=== PATIENT | male | born 1985 | race Caucasian/White ===

== ENCOUNTER 2018-03-23 01:58 | Emergency (ER) | payer MEDICAID ==
[2018-03-23 02:03] VITALS: BP 123/59
[2018-03-23] MEDS ORDERED: Lactated Ringers 1,000 ML IV ONE (02:07)
[2018-03-23] MEDS ORDERED: Prochlorperazine 10 MG/2 ML SDV IVPUSH ONE (02:08)
[2018-03-23] MEDS ORDERED: diphenhydrAMINE 50 MG/ML SDV IVPUSH ONE ×2 (02:08→03:08)
--- NOTE | 2018-03-23 02:19 | EDM.PDOC ---
ED HPI GENERAL MEDICAL PROBLEM - General Chief Complaint: Headache Stated Complaint: MEDICAL [facility]IA [facility] Time Seen by Provider: 03/23/18 02:05 Source of Information: Reports: Patient, EMS, Old Records History Limitations: Reports: No Limitations - History of Present Illness INITIAL COMMENTS - FREE TEXT/NARRATIVE: 32 yo male presents with abrupt onset of a MARLEY associated with nausea and inability to control his eyes. He has no hx of the same. No fever. Has a mildly stiff neck and epigastric pain. Has been on prednisone and methocarbimol for a few days for back pain. Onset: Today, Sudden Onset Date: 03/23/18 Onset Time: 00:50 Duration: Minutes: Location: Reports: Head Quality: Reports: Ache Severity: Moderate Improves with: Reports: None Worsens with: Reports: None Context: Reports: Other (? new medication) Associated Symptoms: Reports: Headaches, Nausea/Vomiting (no vomiting). 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 (see below) (none) headache Pain Score (Numeric/FACES): 10 - Related Data Allergies Allergy/AdvReac Type Severity Reaction Status Date / Time No Known Allergies Allergy Verified 03/23/18 02:24 Home Meds: Home Meds Methocarbamol [Robaxin] 500 mg PO Q6H PRN 03/23/18 [History] methylPREDNISolone [Methylprednisolone] 4 mg PO 03/23/18 [History] Past Medical History HEENT History: Reports: Other (See Below) Other HEENT History: hx strep throat Respiratory History: Reports: Bronchitis, Recurrent Musculoskeletal History: Reports: Back Pain, Chronic, Other (See Below) Other Musculoskeletal History: scoliosis Psychiatric History: Reports: ADHD - Past Surgical History GI Surgical History: Reports: Cholecystectomy Neurological Surgical History: Reports: Scoliosis Social & Family History - Family History Endocrine/Metabolic: Reports: Diabetes, type II ED ROS GENERAL - Review of Systems Review Of Systems: See Below Constitutional: Reports: No Symptoms HEENT: Reports: Other (Can't control eyes) Respiratory: Reports: No Symptoms Cardiovascular: Reports: No Symptoms GI/Abdominal: Reports: Abdominal Pain (epigastric), Nausea. Denies: Black Stool , Bloody Stool, Constipation, Diarrhea, Decreased Appetite, Distension, Hematemesis, Hematochezia, Melena, Vomiting : Reports: No Symptoms Musculoskeletal: Reports: No Symptoms Skin: Reports: No Symptoms Neurological: Reports: Dizziness, Headache Psychiatric: Reports: No Symptoms - Physical Exam Exam: See Below Exam Limited By: No Limitations General Appearance: Alert, WD/WN, No Apparent Distress Eye Exam: Bilateral Eye: Nystagmus (Rotatory), PERRL Ears: Normal External Exam, Normal Canal, Hearing Grossly Normal Nose: Normal Inspection, Normal Mucosa, No Blood Throat/Mouth: Normal Inspection, Normal Lips, Normal Oropharynx, Normal Voice, No Airway Compromise Head Exam: Atraumatic, Normocephalic Neck: Normal Inspection, Supple Respiratory/Chest: No Respiratory Distress, Lungs Clear, Normal Breath Sounds, No Accessory Muscle Use Cardiovascular: Regular Rate, Rhythm GI/Abdominal: Normal Bowel Sounds, Soft, Non-Tender, No Distention Neuro Exam (Abbreviated): Alert, Oriented, CN II-XII Intact, Normal Cognition, No Motor/Sensory Deficits Back Exam: Normal Inspection Extremities: Normal Inspection, Normal Range of Motion, Non-Tender Psychiatric: Normal Affect, Normal Mood Skin Exam: Warm, Dry, Intact, Normal Color, No Rash Course - Vital Signs Text/Narrative:: Feeling much better after tx in the ER. Last Recorded V/S: Last Vital Signs Temp 35.6 C 03/23/18 02:28 Pulse 55 L 03/23/18 02:28 Resp 16 03/23/18 02:28 BP 123/59 L 03/23/18 02:28 Pulse Ox 98 03/23/18 02:28 - Orders/Labs/Meds Orders: Active Orders 24 hr Category Date Time Status Head wo Cont [CT] Stat Exams 03/23/18 02:09 Taken Meds: Medications Discontinued Medications Generic Name Dose Route Start Last Admin Trade Name Jeremie PRN Reason Stop Dose Admin Diphenhydramine HCl 25 mg 03/23/18 02:08 03/23/18 02:36 Benadryl IVPUSH 03/23/18 02:09 25 mg ONETIME ONE Administration Diphenhydramine HCl 25 mg 03/23/18 03:08 03/23/18 03:44 Benadryl IVPUSH 03/23/18 03:09 25 mg ONETIME ONE Administration Lactated Ringer's 1,000 mls @ 1,000 mls/hr 03/23/18 02:07 03/23/18 03:14 Ringers, Lactated IV 03/23/18 03:06 1,000 mls/hr BOLUS ONE Administration Prochlorperazine Edisylate 10 mg 03/23/18 02:08 Compazine IVPUSH 03/23/18 02:09 ONETIME ONE - Radiology Interpretation Free Text/Narrative:: Negative head CT scan CT Results Date: 03/23/18 CT Results Time: 02:45 Departure - Departure Time of Disposition: 04:15 Disposition: Home, Self-Care 01 Condition: Good Clinical Impression: Medication side effects Headache Qualifiers: Headache type: other drug induced headache Intractability: not intractable Qualified Code(s): G44.40 - Drug-induced headache, not elsewhere classified, not intractable - Discharge Information Referrals: PCP,None [Primary Care Provider] - Forms: ED Department Discharge - My Orders Last 24 Hours: My Active Orders 03/23/18 02:09 Head wo Cont [CT] Stat - Assessment/Plan Last 24 Hours: My Active Orders 03/23/18 02:09 Head wo Cont [CT] Stat
== END 2018-03-23 04:45 | disposition home or self-care (01) ==
LOC: JP.ED 01:58
DX: G44.40 Drug-induced headache, not elsewhere classified, not intractable (principal); T38.0X5A Adverse effect of glucocorticoids and synthetic analogues, initial encounter; T48.1X5A Adverse effect of skeletal muscle relaxants [neuromuscular blocking agents], initial encounter; E11.9 Type 2 diabetes mellitus without complications; Z79.899 Other long term (current) drug therapy
CPT/HCPCS: 70450; 96361; 96374; 96376; 99285; J1200; J7120

== ENCOUNTER 2019-04-25 16:48 | Emergency (ER) | payer MEDICAID ==
[2019-04-25 17:54] VITALS: BP 150/80; PULSE 74
--- NOTE | 2019-04-25 18:49 | CRLCR ---
HISTORY: Pain. TECHNIQUE: Left foot 3 views. COMPARISON: None. FINDINGS: No fracture or dislocation. Joint spaces are maintained. No erosions. Plantar calcaneal and Achilles insertion enthesophytes. IMPRESSION: No acute bone abnormality. Dictated by Domenico Reyes MD @ Apr 25 2019 6:47PM Signed by Dr. Domenico Reyes @ Apr 25 2019 6:48PM
--- NOTE | 2019-04-25 18:58 | EDM.PDOC ---
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 he has had difficulty walking difficulty bearing weight mild amount of swelling can still ambulate, does have a history of this similar injury in the past - Related Data Allergies Allergy/AdvReac Type Severity Reaction Status Date / Time No Known Allergies Allergy Verified 03/23/18 02:24 Home Meds: Home Meds Methocarbamol [Robaxin] 500 mg PO Q6H PRN 03/23/18 [History] methylPREDNISolone [Methylprednisolone] 4 mg PO 03/23/18 [History] Past Medical History HEENT History: Reports: Other (See Below) Other HEENT History: hx strep throat Respiratory History: Reports: Bronchitis, Recurrent Musculoskeletal History: Reports: Back Pain, Chronic, Other (See Below) Other Musculoskeletal History: scoliosis Psychiatric History: Reports: ADHD - Past Surgical History GI Surgical History: Reports: Cholecystectomy Neurological Surgical History: Reports: Scoliosis Social & Family History - Family History Endocrine/Metabolic: Reports: Diabetes, type II - Tobacco Use Smoking Status *Q: Never Smoker - Caffeine Use Caffeine Use: Reports: Soda Review of Systems - Review of Systems Review Of Systems: See Below Musculoskeletal: Reports: Foot Pain Skin: Reports: No Symptoms Neurological: Reports: No Symptoms ED EXAM, GENERAL - Physical Exam Exam: See Below Free Text/Narrative:: Examination of the foot I do appreciate slight edema over the dorsal aspect of the foot there is no erythema pedal pulses +2 full range of motion of all digits is no tenderness ankle no tenderness at the knee Exam Limited By: No Limitations General Appearance: Alert, WD/WN, No Apparent Distress Course - Vital Signs Last Recorded V/S: Last Vital Signs Temp 97.8 F 04/25/19 18:04 Pulse 74 04/25/19 18:04 Resp 16 04/25/19 18:04 BP 150/80 H 04/25/19 18:04 Pulse Ox 95 04/25/19 18:04 - Orders/Labs/Meds Orders: Active Orders 24 hr Category Date Time Status DME for Discharge [COMM] Per Unit Routine Oth 04/25/19 18:54 Ordered Departure - Departure Time of Disposition: 18:57 Disposition: Home, Self-Care 01 Condition: Fair Clinical Impression: Left foot sprain Sprain of left foot Qualifiers: Encounter type: initial encounter Qualified Code(s): S93.602A - Unspecified sprain of left foot, initial encounter - Discharge Information Referrals: PCP,None [Primary Care Provider] - Additional Instructions: Use Tylenol or Motrin as needed for pain control, continue to use the air gel splint and crutches for comfort, Please followup with your primary care provider in 3-5 days if not better, please call return to the emergency department with worsening of symptoms. - My Orders Last 24 Hours: My Active Orders 04/25/19 18:54 DME for Discharge [COMM] Per Unit Routine - Assessment/Plan Last 24 Hours: My Active Orders 04/25/19 18:54 DME for Discharge [COMM] Per Unit Routine Plan: Assessment Acuity = acute Site and laterality = left foot sprain Etiology = secondary to trauma Manifestations = none Location of injury = Home Lab values = x-ray describes no fracture or dislocation per radiology Plan Provided an air gel splint and crutches will use nonsteroidal anti- inflammatories for pain control follow-up primary care 3-5 days if no improvement This note was dictated using [employer] voice recognition software please call with any questions on syntax or grammar.
== END 2019-04-25 19:18 | disposition home or self-care (01) ==
LOC: JP.ED 16:48
DX: S93.602A Unspecified sprain of left foot, initial encounter (principal); Z90.49 Acquired absence of other specified parts of digestive tract; X58.XXXA Exposure to other specified factors, initial encounter; Y93.39 Activity, other involving climbing, rappelling and jumping off
CPT/HCPCS: 73630-LT; 99283-25

== ENCOUNTER 2021-03-04 19:51 | Emergency (ER) | payer MEDICAID ==
[2021-03-04 20:07] VITALS: BP 135/74; PULSE 76
[2021-03-04] MEDS ORDERED: Ketorolac 60 MG/2 ML SDV IM ONE (20:17)
--- NOTE | 2021-03-04 20:21 | EDM.PDOC ---
ED HPI GENERAL MEDICAL PROBLEM - General Chief Complaint: General Stated Complaint: SLIGHT CHEST PAIN Time Seen by Provider: 03/04/21 20:09 Source of Information: Reports: Patient History Limitations: Reports: No Limitations - History of Present Illness INITIAL COMMENTS - FREE TEXT/NARRATIVE: Say is a 35-year-old male presenting to the ED for evaluation of central anterior chest pain that started this morning when he awoke. Patient was at his job as a specialist physician at [employer] and the pain was fairly persistent through the day. The pain worsens with change in position and with breathing. The pain runs along the sternal chondral borders bilaterally. Patient denies any fever, chills, nausea, vomiting, shortness of breath or cough. Patient did get a Mantoux test on Sunday with some inflammation of his forearm. The test was negative. He denies any strenuous activity, however, he did work on a [employer] truck yesterday. There was no heavy lifting with that. Denies any other trauma. Patient is a non-smoker. He only takes Flexeril as needed for back spasms. He has no other significant past medical history. Middle Chest Pain Score (Numeric/FACES): 5 - Related Data Allergies Allergy/AdvReac Type Severity Reaction Status Date / Time methocarbamol [From Robaxin] Allergy Dizziness Verified 03/04/21 21:43 Home Meds: Home Meds Cyclobenzaprine [Flexeril] 1 tab PO TID PRN 03/04/21 [History] Past Medical History HEENT History: Reports: Other (See Below) Other HEENT History: hx strep throat Respiratory History: Reports: Bronchitis, Recurrent Musculoskeletal History: Reports: Back Pain, Chronic, Other (See Below) Other Musculoskeletal History: scoliosis Neurological History: Reports: None Psychiatric History: Reports: ADHD - Past Surgical History GI Surgical History: Reports: Cholecystectomy Neurological Surgical History: Reports: Scoliosis Social & Family History - Family History Endocrine/Metabolic: Reports: Diabetes, type II - Tobacco Use Tobacco Use Status *Q: Never Tobacco User - Caffeine Use Caffeine Use: Reports: Soda - Recreational Drug Use Recreational Drug Use: No ED ROS GENERAL - Review of Systems Review Of Systems: See Below Constitutional: Reports: No Symptoms HEENT: Reports: No Symptoms Respiratory: Reports: No Symptoms Cardiovascular: Reports: Chest Pain (Central chest pain worsens with position change in breathing.) Endocrine: Reports: No Symptoms GI/Abdominal: Reports: No Symptoms : Reports: No Symptoms Musculoskeletal: Reports: No Symptoms Skin: Reports: No Symptoms Neurological: Reports: No Symptoms Psychiatric: Reports: No Symptoms Hematologic/Lymphatic: Reports: No Symptoms Immunologic: Reports: No Symptoms ED EXAM, GENERAL - Physical Exam Exam: See Below Exam Limited By: No Limitations General Appearance: Alert, No Apparent Distress, Obese Eye Exam: Bilateral Eye: PERRL Throat/Mouth: Normal Inspection, Normal Oropharynx, Normal Voice, No Airway Compromise Head: Atraumatic, Normocephalic Neck: Normal Inspection, Supple, Non-Tender, Full Range of Motion Respiratory/Chest: No Respiratory Distress, Lungs Clear, Normal Breath Sounds, No Accessory Muscle Use, Other (Pain with palpation over the sternal costal borders bilaterally. This reproduces his symptoms.) Cardiovascular: Normal Peripheral Pulses, Regular Rate, Rhythm, No Murmur Peripheral Pulses: 2+: Radial (L), Radial (R), Posterior Tibial (L), Posterior Tibial (R) GI/Abdominal: Normal Bowel Sounds, Soft, Non-Tender Back Exam: Normal Inspection, Full Range of Motion Extremities: Normal Inspection, Normal Range of Motion, No Pedal Edema Neurological: Alert, Oriented, Normal Cognition, No Motor/Sensory Deficits Psychiatric: Normal Affect, Normal Mood Skin Exam: Warm, Dry, Intact, Normal Color, No Rash Lymphatic: No Adenopathy #1 Interpretation EKG Date: 03/04/21 Time: 20:18 Rhythm: NSR Rate (Beats/Min): 74 [place]: Normal P-Wave: Present QRS: Normal ST-T: Other (Early repolarization abnormality with ST elevation in leads I, 2, V4, V5. These are not consistent with STEMI.) QT: Normal Comparison: NA - No Prior EKG Course - Vital Signs Last Recorded V/S: Last Vital Signs Temp 36.7 C 03/04/21 20:07 Pulse 76 03/04/21 20:07 Resp 16 03/04/21 20:07 BP 135/74 03/04/21 20:07 Pulse Ox 97 03/04/21 20:07 - Orders/Labs/Meds Orders: Active Orders 24 hr Category Date Time Status EKG Documentation Completion [RC] ASDIRECTED Care 03/04/21 20:10 Active Chest 2V [CR] Stat Exams 03/04/21 20:10 Taken EKG 12 Lead [EK] Routine Ther 03/04/21 20:10 Ordered Labs: Laboratory Tests 03/04/21 03/04/21 03/04/21 Range/Units 20:19 20:19 21:46 WBC 10.6 (4.5-11.0) K/uL RBC 5.02 (4.30-5.90) M/uL Hgb 13.0 (12.0-15.0) g/dL Hct 40.8 (40.0-54.0) % MCV 81 (80-98) fL MCH 26 L (27-31) pg MCHC 32 (32-36) % Plt Count 438 H (150-400) K/uL Neut % (Auto) 57.9 (36-66) % Lymph % (Auto) 27.8 (24-44) % [place] % (Auto) 10.6 H (2-6) % Eos % (Auto) 2.9 (2-4) % Baso % (Auto) 0.8 (0-1) % D-Dimer, Quantitative 350.29 (0.0-500.0) ng/mL Sodium 141 (140-148) mmol/L Potassium 4.3 (3.6-5.2) mmol/L Chloride 103 (100-108) mmol/L Carbon Dioxide 28 (21-32) mmol/L Anion Gap 9.6 (5.0-14.0) mmol/L BUN 21 H D (7-18) mg/dL Creatinine 0.9 (0.8-1.3) mg/dL Est Cr Clr Drug Dosing 99.65 mL/min Estimated GFR (MDRD) > 60 (>60) Glucose 98 (74-106) mg/dL Calcium 9.3 (8.5-10.1) mg/dL Total Bilirubin 0.2 D (0.2-1.0) mg/dL AST 40 H (15-37) U/L ALT 85 H (12-78) U/L Alkaline Phosphatase 98 (46-116) U/L Troponin I < 0.017 (0.000-0.056) ng/mL C-Reactive Protein 1.29 H (0.0-0.3) mg/dL Total Protein 7.7 (6.4-8.2) g/dL Albumin 3.8 (3.4-5.0) g/dL Globulin 3.9 H (2.3-3.5) g/dL Albumin/Globulin Ratio 1.0 L (1.2-2.2) Meds: Medications Discontinued Medications Generic Name Dose Route Start Last Admin Trade Name Jeremie PRN Reason Stop Dose Admin Ketorolac Tromethamine 60 mg 03/04/21 20:17 03/04/21 20:33 Ketorolac 60 Mg/2 Ml Sdv IM 03/04/21 20:18 60 mg ONETIME ONE Administration - Radiology Interpretation Free Text/Narrative:: Chest 2 view x-rays were reviewed showing no acute abnormalities. - Re-Assessments/Exams Free Text/Narrative Re-Assessment/Exam: 03/04/21 21:32 patient's EKG shows early repolarization abnormality, however, no evidence for acute injury or infarct. His troponin is also negative. The patient's labs showing an elevated C-reactive protein of 1.29 and a normal CBC and comprehensive metabolic profile the exception of mild elevation of his AST and ALT likely secondary to some alcohol intake. He has had some improvement in his chest pain after receiving the Toradol. X-rays were reviewed showing no acute abnormalities. At this time I believe the patient is suitable for discharge with acute costochondritis. We will continue to treat him with Toradol 10 mg 4 times daily which was sent to [facility]. Departure - Departure Time of Disposition: 22:32 Disposition: Home, Self-Care 01 Clinical Impression: Acute costochondritis - Discharge Information Instructions: Costochondritis Referrals: PCP,None [Primary Care Provider] - Forms: ED Department Discharge Care Plan Goals: Your work-up shows that you have inflammation between the ribs and the sternum called acute costochondritis. This is like a flare of arthritis. We are going to put you on the oral form of what I gave you in the shot to help control the pain. This will likely take 3 to 4 days to completely go away but should improve each day. This is nothing dangerous or serious but it is bothersome. There is no limitation to your activity which is as tolerated. Return to the ED should you develop any significant shortness of breath. Sepsis Event Note (ED) - Evaluation Sepsis Screening Result: No Definite Risk - Focused Exam Vital Signs: Vital Signs Temp Pulse Resp BP Pulse Ox 03/04/21 20:07 36.7 C 76 16 135/74 97 03/04/21 20:06 36.7 C 76 16 135/74 97 - Problem List & Annotations (1) Acute costochondritis SNOMED Code(s): 22994158, 22445508 Code(s): M94.0 - CHONDROCOSTAL JUNCTION SYNDROME [TIETZE] Status: Acute Priority: High Current Visit: Yes - Problem List Review Problem List Initiated/Reviewed/Updated: Yes - My Orders Last 24 Hours: My Active Orders 03/04/21 20:10 EKG Documentation Completion [RC] ASDIRECTED Chest 2V [CR] Stat EKG 12 Lead [EK] Routine - Assessment/Plan Last 24 Hours: My Active Orders 03/04/21 20:10 EKG Documentation Completion [RC] ASDIRECTED Chest 2V [CR] Stat EKG 12 Lead [EK] Routine
--- NOTE | 2021-03-08 09:09 | CR ---
CHEST: 2 view CLINICAL HISTORY:Retrosternal pain COMPARISON:2016 FINDINGS: The heart size, pulmonary vascularity and hilar structures are normal. No infiltrate effusion or pneumothorax is seen. IMPRESSION: No acute cardiopulmonary process. Specifically the sternum appears intact on the lateral view with no evidence for retrosternal mass
== END 2021-03-04 22:38 | disposition home or self-care (01) ==
LOC: JP.ED 19:51
DX: M94.0 Chondrocostal junction syndrome [Tietze] (principal); Z88.1 Allergy status to other antibiotic agents
CPT/HCPCS: 36415; 71046; 80053; 84484; 85025; 85379; 86140; 93005; 96372; 99284; J1885

== ENCOUNTER 2021-12-29 09:20 | Emergency (ER) | payer MEDICAID ==
[2021-12-29 09:28] VITALS: PULSE 107
[2021-12-29] MEDS ORDERED: Ondansetron 4 MG/2 ML SDV IVPUSH ONE (09:44)
[2021-12-29] MEDS ORDERED: Sodium Chloride 0.9% 1,000 ML IV SCH (09:45)
[2021-12-29 10:56] VITALS: BP 116/62
== END 2021-12-29 11:06 | disposition home or self-care (01) ==
LOC: JP.ED 09:20
DX: K52.9 Noninfective gastroenteritis and colitis, unspecified (principal); R55 Syncope and collapse; Z88.1 Allergy status to other antibiotic agents
CPT/HCPCS: 36415; 80053; 83690; 85025; 96374; 99284; 99284-25; J2405; J7030

== ENCOUNTER 2022-05-21 10:52 | Emergency (ER) | payer MEDICAID ==
[2022-05-21 11:05] VITALS: BP 134/79; PULSE 92
== END 2022-05-21 12:19 | disposition home or self-care (01) ==
LOC: JP.ED 10:52
DX: L03.032 Cellulitis of left toe (principal); Z88.8 Allergy status to other drugs, medicaments and biological substances; Z90.49 Acquired absence of other specified parts of digestive tract; W20.8XXA Other cause of strike by thrown, projected or falling object, initial encounter
CPT/HCPCS: 73630-26-LT; 73630-LT; 99281; 99283

== ENCOUNTER 2022-11-24 17:50 | Emergency (ER) | payer MEDICAID ==
[2022-11-24 18:04] VITALS: BP 155/86; PULSE 96
[2022-11-24 18:51] LABS: CORONAVIRUS COVID-19 NAA NEGATIVE (NEGATIVE)
== END 2022-11-24 18:50 | disposition home or self-care (01) ==
LOC: JP.ED 17:50
DX: J02.0 Streptococcal pharyngitis (principal); Z88.8 Allergy status to other drugs, medicaments and biological substances; Z20.822 Contact with and (suspected) exposure to COVID-19
CPT/HCPCS: 0241U; 87880; 99283

== ENCOUNTER 2023-01-23 18:03 | Emergency (ER) | payer MEDICAID ==
[2023-01-23] MEDS ORDERED: Sodium Chloride 0.9% 10 ML Syringe FLUSH PRN (19:08)
[2023-01-23] MEDS ORDERED: Sodium Chloride 0.9% 1,000 ML IV STA (19:08)
[2023-01-23] MEDS ORDERED: fentaNYL 100 MCG/2 ML SDV IVPUSH ONE (19:09)
[2023-01-23] MEDS ORDERED: Ondansetron 4 MG/2 ML SDV IVPUSH ONE (19:09)
[2023-01-23] MEDS ORDERED: Sodium Chloride 0.9% 50 ML IV SCH (19:30)
[2023-01-23] MEDS ORDERED: Iopamidol 612 MG/ML 100 ML Bottle IV SCH (19:30)
[2023-01-23 19:45] LABS: ESTIMATED GFR 117 mL/min (>60); TROPONIN I HIGH SENSITIVITY 5.8 pg/mL (<=60.3)
[2023-01-23] MEDS ORDERED: HYDROmorphone 1 MG/ML Syringe IVPUSH ONE (21:16)
[2023-01-23] MEDS ORDERED: Sodium Chloride 0.9% 1,000 ML IV SCH (21:30)
[2023-01-24] MEDS ORDERED: HYDROmorphone 1 MG/ML Syringe IVPUSH ONE (00:17)
[2023-01-24] MEDS ORDERED: Sodium Chloride 0.9% 1,000 ML IV SCH ×2 (00:30→04:45)
[2023-01-24] MEDS ORDERED: HYDROmorphone 0.5 MG/0.5 ML Syringe IVPUSH ONE (04:38)
[2023-01-24] MEDS ORDERED: HYDROmorphone 0.5 MG/0.5 ML Syringe IVPUSH PRN (07:36)
[2023-01-24 08:01] VITALS: BP 152/78; PULSE 78
== END 2023-01-24 08:04 ==
LOC: JP.ED 18:03
DX: K85.80 Other acute pancreatitis without necrosis or infection (principal); Z88.8 Allergy status to other drugs, medicaments and biological substances; Z86.16 Personal history of COVID-19; Z20.822 Contact with and (suspected) exposure to COVID-19
CPT/HCPCS: 36415; 74177; 80053; 80307; 81001; 83605; 83690; 84478; 84484; 85025; 87635; 96361; 96374; 96375; 96376; 99284; 99285; J1170; J2405; J3010; J3490; J7030; Q9967; U0002

== ENCOUNTER 2023-08-28 23:13 | Emergency (ER) | payer MEDICAID ==
[2023-08-28] MEDS ORDERED: Sodium Chloride 0.9% 10 ML Syringe FLUSH PRN (23:16)
[2023-08-28] MEDS ORDERED: Ondansetron 4 MG/2 ML SDV IVPUSH ONE (23:16)
[2023-08-28 23:20] VITALS: BP 135/78; PULSE 102
[2023-08-28] MEDS ORDERED: Iopamidol 612 MG/ML 100 ML Bottle IV STA (23:24)
[2023-08-28] MEDS ORDERED: Sodium Chloride 0.9% 10 ML Syringe FLUSH STA (23:25)
[2023-08-28] MEDS ORDERED: Sodium Chloride 0.9% 50 ML IV STA (23:25)
[2023-08-28 23:26] LABS: BASOPHILS PERCENT AUTO 0.6 % (0.1-1.3); EOSINOPHILS ABSOLUTE AUTO 0.12 K/uL (0.00-0.40); EOSINOPHILS PERCENT AUTO 0.7 % (0.0-5.4); HEMATOCRIT 42.2 % (38.4-49.7); HEMOGLOBIN 13.9 g/dL (12.9-16.9); IMMATURE GRAN ABSOLUTE AUTO 0.09 K/uL (0.00-0.23); IMMATURE GRAN PERCENT AUTO 0.5 % (0.0-0.7); LYMPHOCYTES ABSOLUTE AUTO 2.03 K/uL (0.8-3.3); LYMPHOCYTES PERCENT AUTO 12.3 % (11.4-47.7); MEAN CORPUSCULAR HEMOGLOBIN 25.9 pg (31.6-35.5); MEAN CORPUSCULAR HGB CONC 32.9 g/dL (31.6-35.5); MEAN CORPUSCULAR VOLUME 78.7 fL (81.4-99.0); MONOCYTES ABSOLUTE AUTO 1.33 K/uL (0.20-0.90); MONOCYTES PERCENT AUTO 8.1 % (3.3-12.6); NEUTROPHILS ABSOLUTE AUTO 12.84 K/uL (1.0-7.6); NEUTROPHILS PERCENT AUTO 77.8 % (40.0-78.1); PLATELET COUNT,PLT 453 K/uL (130-375); RED BLOOD CELL COUNT 5.36 M/uL (4.14-5.76); WHITE BLOOD CELL COUNT,WBC 16.5 K/uL (3.2-11.0)
[2023-08-28 23:52] LABS: APPEARANCE,URINE CLEAR (CLEAR); BILIRUBIN,URINE NEGATIVE (NEGATIVE); COLOR,URINE YELLOW (YELLOW); GLUCOSE,URINE NEGATIVE (NEGATIVE); KETONES,URINE NEGATIVE (NEGATIVE); LEUKOCYTE ESTERASE,URINE NEGATIVE (NEGATIVE); NITRITE,URINE NEGATIVE (NEGATIVE); OCCULT BLOOD,URINE MODERATE (NEGATIVE); PH,URINE 5.5 (5.0-8.0); PROTEIN,URINE 30 mg/dL (NEGATIVE); UROBILINOGEN,URINE 0.2 EU/dL (0.2-1.0)
[2023-08-28 23:57] LABS: ALANINE AMINOTRANSFERASE,ALT 50 U/L (12-78); ALKALINE PHOSPHATASE 90 U/L (46-116); ASPARTATE AMNIOTRANSFERASE,AST 30 U/L (15-37); BILIRUBIN TOTAL 0.6 mg/dL (0.2-1.0); BLOOD UREA NITROGEN,BUN 18 mg/dL (7-18); C-REACTIVE PROTEIN 4.95 mg/dL (0.0-0.3); CALCIUM 9.2 mg/dL (8.5-10.1); CARBON DIOXIDE,CO2 25 mmol/L (21-32); CHLORIDE,CL 98 mmol/L (100-108); CREATININE 0.8 mg/dL (0.8-1.3); EST CRCL DRUG DOSING (CG) 114.09 mL/min; ESTIMATED GFR 117 mL/min (>60); GLUCOSE RANDOM 122 mg/dL (74-106); POTASSIUM,K 3.7 mmol/L (3.6-5.2); PROTEIN TOTAL,TP 8.2 g/dL (6.4-8.2); SODIUM,NA 134 mmol/L (140-148)
[2023-08-28 23:58] LABS: AMORPHOUS SEDIMENT,URINE NOT SEEN; BACTERIA,URINE FEW; EPITHELIAL CELLS,URINE RARE; MUCUS,URINE FEW; WBC,URINE 0-5 (0-5)
[2023-08-28 23:58] LABS: ANION GAP 14.7 mmol/L (5.0-14.0)
[2023-08-29 00:11] LABS: CORONAVIRUS COVID-19 NAA NEGATIVE (NEGATIVE); INFLUENZA A NAA NEGATIVE (NEGATIVE); INFLUENZA B NAA NEGATIVE (NEGATIVE); RESPIRATORY SYNCYTIAL VIR NAA NEGATIVE (NEGATIVE)
== END 2023-08-29 00:59 | disposition home or self-care (01) ==
LOC: JP.ED 23:13
DX: K85.00 Idiopathic acute pancreatitis without necrosis or infection (principal); Z86.16 Personal history of COVID-19; Z90.49 Acquired absence of other specified parts of digestive tract; Z79.899 Other long term (current) drug therapy; Z88.8 Allergy status to other drugs, medicaments and biological substances; Z20.822 Contact with and (suspected) exposure to COVID-19
CPT/HCPCS: 0241U; 36415; 74177; 80053; 81001; 83690; 85025; 86140; 96374; 99284-25; J2405; J3490; Q9967

== ENCOUNTER 2023-11-05 15:28 | Emergency (ER) | payer MEDICAID ==
[2023-11-05 15:59] VITALS: BP 127/73; PULSE 125
[2023-11-05 16:05] LABS: BASOPHILS ABSOLUTE AUTO 0.07 K/uL (0.00-0.10); BASOPHILS PERCENT AUTO 0.5 % (0.1-1.3); EOSINOPHILS ABSOLUTE AUTO 0.05 K/uL (0.00-0.40); EOSINOPHILS PERCENT AUTO 0.4 % (0.0-5.4); HEMATOCRIT 41.3 % (38.4-49.7); HEMOGLOBIN 13.8 g/dL (12.9-16.9); IMMATURE GRAN ABSOLUTE AUTO 0.07 K/uL (0.00-0.23); IMMATURE GRAN PERCENT AUTO 0.5 % (0.0-0.7); LYMPHOCYTES ABSOLUTE AUTO 0.68 K/uL (0.8-3.3); LYMPHOCYTES PERCENT AUTO 5.3 % (11.4-47.7); MEAN CORPUSCULAR HEMOGLOBIN 26.1 pg (31.6-35.5); MEAN CORPUSCULAR HGB CONC 33.4 g/dL (31.6-35.5); MEAN CORPUSCULAR VOLUME 78.2 fL (81.4-99.0); MONOCYTES ABSOLUTE AUTO 1.08 K/uL (0.20-0.90); MONOCYTES PERCENT AUTO 8.5 % (3.3-12.6); NEUTROPHILS ABSOLUTE AUTO 10.78 K/uL (1.0-7.6); NEUTROPHILS PERCENT AUTO 84.8 % (40.0-78.1); PLATELET COUNT,PLT 387 K/uL (130-375); RED BLOOD CELL COUNT 5.28 M/uL (4.14-5.76); WHITE BLOOD CELL COUNT,WBC 12.7 K/uL (3.2-11.0)
[2023-11-05 16:22] LABS: ANION GAP 14.9 mmol/L (5.0-14.0); C-REACTIVE PROTEIN 2.25 mg/dL (<0.50); CALCIUM 8.7 mg/dL (8.5-10.1); CREATININE 0.9 mg/dL (0.8-1.3); EST CRCL DRUG DOSING (CG) 100.43 mL/min; POTASSIUM,K 3.9 mmol/L (3.6-5.2)
[2023-11-05 16:39] LABS: CORONAVIRUS COVID-19 NAA NEGATIVE (NEGATIVE); INFLUENZA A NAA POSITIVE (NEGATIVE); INFLUENZA B NAA NEGATIVE (NEGATIVE); RESPIRATORY SYNCYTIAL VIR NAA NEGATIVE (NEGATIVE)
[2023-11-05] MEDS: Ibuprofen 400 MG Tab PO ONE (17:23)
[2023-11-05] MEDS: Acetaminophen 500 MG Tab PO ONE (17:24)
== END 2023-11-05 17:44 | disposition home or self-care (01) ==
LOC: JP.ED 15:28
DX: J10.1 Influenza due to other identified influenza virus with other respiratory manifestations (principal); Z86.16 Personal history of COVID-19; Z79.899 Other long term (current) drug therapy; Z88.8 Allergy status to other drugs, medicaments and biological substances
CPT/HCPCS: 0241U; 36415; 80048; 83605; 85025; 86140; 87651; 99283; 99284; A9270

== ENCOUNTER 2024-01-04 17:11 | Emergency (ER) | payer SELFPAY ==
[2024-01-04 17:38] VITALS: BP 139/71; PULSE 84
[2024-01-04] MEDS: Ketorolac 15 MG/ML SDV IM ONE (18:47)
== END 2024-01-04 19:19 | disposition home or self-care (01) ==
LOC: JP.ED 17:11
DX: S40.011A Contusion of right shoulder, initial encounter (principal); S40.021A Contusion of right upper arm, initial encounter; Z86.16 Personal history of COVID-19; Z90.49 Acquired absence of other specified parts of digestive tract; Z79.899 Other long term (current) drug therapy; Z88.8 Allergy status to other drugs, medicaments and biological substances; W00.0XXA Fall on same level due to ice and snow, initial encounter; Y92.481 Parking lot as the place of occurrence of the external cause; Y93.01 Activity, walking, marching and hiking
CPT/HCPCS: 73030; 73060; 73090; 73100; 96372; 99283; J1885

== ENCOUNTER 2025-01-14 06:57 | Emergency (ER) | payer BC, MEDICAID ==
[2025-01-14] MEDS ORDERED: Naloxone 0.4 MG/ML SDV IVPUSH PRN (07:38)
[2025-01-14 07:45] LABS: BASOPHILS ABSOLUTE AUTO 0.09 K/uL (0.00-0.10); BASOPHILS PERCENT AUTO 0.6 % (0.1-1.3); EOSINOPHILS ABSOLUTE AUTO 0.23 K/uL (0.00-0.40); EOSINOPHILS PERCENT AUTO 1.4 % (0.0-5.4); HEMATOCRIT 42.7 % (38.4-49.7); IMMATURE GRAN PERCENT AUTO 0.6 % (0.0-0.7); LYMPHOCYTES ABSOLUTE AUTO 1.68 K/uL (0.8-3.3); LYMPHOCYTES PERCENT AUTO 10.4 % (11.4-47.7); MEAN CORPUSCULAR HEMOGLOBIN 26.5 pg (31.6-35.5); MEAN CORPUSCULAR HGB CONC 32.8 g/dL (31.6-35.5); MEAN CORPUSCULAR VOLUME 80.9 fL (81.4-99.0); MONOCYTES ABSOLUTE AUTO 1.18 K/uL (0.20-0.90); MONOCYTES PERCENT AUTO 7.3 % (3.3-12.6); NEUTROPHILS ABSOLUTE AUTO 12.81 K/uL (1.0-7.6); NEUTROPHILS PERCENT AUTO 79.7 % (40.0-78.1); PLATELET COUNT,PLT 389 K/uL (130-375); RED BLOOD CELL COUNT 5.28 M/uL (4.14-5.76); WHITE BLOOD CELL COUNT,WBC 16.1 K/uL (3.2-11.0)
[2025-01-14] MEDS: Sodium Chloride 0.9% 1,000 ML IV ONE (07:50)
[2025-01-14] MEDS: HYDROmorphone 1 MG/ML Syringe IVPUSH PRN (07:50)
[2025-01-14 08:14] LABS: A/G RATIO 0.8 (1.2-2.2); ALANINE AMINOTRANSFERASE,ALT 31 U/L (12-78); ALBUMIN 3.5 g/dL (3.4-5.0); ALKALINE PHOSPHATASE 89 U/L (46-116); ASPARTATE AMNIOTRANSFERASE,AST 19 U/L (15-37); BILIRUBIN TOTAL 0.2 mg/dL (0.2-1.0); BLOOD UREA NITROGEN,BUN 17 mg/dL (7-18); CALCIUM 9.1 mg/dL (8.5-10.1); CARBON DIOXIDE,CO2 24 mmol/L (21-32); CHLORIDE,CL 101 mmol/L (100-108); CREATININE 0.8 mg/dL (0.8-1.3); EST CRCL DRUG DOSING (CG) 111.87 mL/min; ESTIMATED GFR 115 mL/min (>60); GLUCOSE RANDOM 125 mg/dL (74-106); POTASSIUM,K 3.8 mmol/L (3.6-5.2); PRO B-TYPE NATRIUR PEPT,BNPPRO 66 pg/mL (5-125); PROTEIN TOTAL,TP 7.8 g/dL (6.4-8.2); SODIUM,NA 136 mmol/L (140-148); TROPONIN I HIGH SENSITIVITY 12.6 pg/mL (<=60.3)
[2025-01-14] MEDS: Famotidine 20 MG/2 ML SDV IVPUSH ONE (08:16)
[2025-01-14] MEDS: Alum Hydrox/Mag Hydrox/Simeth 15 ML, Lidocaine 2% 15 ML PO ONE (08:16)
[2025-01-14 08:17] LABS: ANION GAP 14.8 mmol/L (5.0-14.0)
[2025-01-14 08:56] LABS: APPEARANCE,URINE CLEAR (CLEAR); BILIRUBIN,URINE NEGATIVE (NEGATIVE); COLOR,URINE YELLOW (YELLOW); GLUCOSE,URINE NEGATIVE (NEGATIVE); KETONES,URINE NEGATIVE (NEGATIVE); LEUKOCYTE ESTERASE,URINE NEGATIVE (NEGATIVE); NITRITE,URINE NEGATIVE (NEGATIVE); OCCULT BLOOD,URINE MODERATE (NEGATIVE); PH,URINE 5.5 (5.0-8.0); PROTEIN,URINE NEGATIVE (NEGATIVE); UROBILINOGEN,URINE 0.2 EU/dL (0.2-1.0)
[2025-01-14 09:04] LABS: AMPHETAMINES SCREEN, URINE NEGATIVE (NEGATIVE); BARBITURATE SCREEN,URINE NEGATIVE (NEGATIVE); BENZODIAZEPINES SCREEN,URINE NEGATIVE (NEGATIVE); METHADONE SCREEN, URINE NEGATIVE (NEGATIVE); METHAMPHETAMINES SCREEN, URINE NEGATIVE (NEGATIVE); OXYCODONE SCREEN,URINE NEGATIVE (NEGATIVE); PROPOXYPHENE SCREEN,URINE NEGATIVE (NEGATIVE); THC SCREEN,URINE 50 NG/ML NEGATIVE (NEGATIVE)
[2025-01-14 09:04] LABS: AMORPHOUS SEDIMENT,URINE RARE; BACTERIA,URINE NOT SEEN; EPITHELIAL CELLS,URINE NOT SEEN; MUCUS,URINE NOT SEEN; RBC,URINE NOT SEEN (0-5); WBC,URINE NOT SEEN (0-5)
[2025-01-14 09:38] VITALS: BP 121/70; PULSE 72
== END 2025-01-14 09:30 | disposition home or self-care (01) ==
LOC: JP.ED 06:57
DX: K29.00 Acute gastritis without bleeding (principal); Z79.899 Other long term (current) drug therapy; Z86.16 Personal history of COVID-19; Z90.49 Acquired absence of other specified parts of digestive tract
CPT/HCPCS: 36415; 71045; 71045-26; 80053; 80305-QW; 80307; 81001; 83605; 83690; 83880; 84484; 85025; 85379; 87428-QW; 93005; 93010; 96361; 96374; 96375; 99284; 99284-25; A9270-GY; J1171; J7030